=== PATIENT | male | born 1960 | race African-American/Black ===

== ENCOUNTER 2018-03-23 04:57 | Emergency (ER) | payer MEDICAID ==
[~2018-03-23] VITALS: Ht 180.3 cm; Wt 74.0 kg
[2018-03-23] MEDS ORDERED: MORPHINE SULFATE 4 MG/ML CPJ (NOT FOR IM USE) IV STA (06:43)
[2018-03-23 07:22] LABS: HEMATOCRIT. 40.2 % (42.0-52.0); HEMOGLOBIN. 13.6 g/dL (14.0-18.0); MEAN CORPUSCULAR HEMOGLOBIN 32.3 pg (28.0-32.0); MEAN CORPUSCULAR VOLUME 95.7 fL (80.0-94.0); MEAN PLATELET VOLUME 6.6 fl (7.4-10.4); PLATELET 281 x1000/uL (130-400); RED BLOOD CELL COUNT 4.21 mill/uL (4.7-6.1); RED CELL DISTRIBUTION WIDTH 13.2 % (11.6-14.6)
[2018-03-23 07:27] LABS: CHLORIDE 107 mEq/L (98-107)
[2018-03-23 07:30] LABS: PROTHROMBIN TIME 9.8 sec (9.1-11.1)
[2018-03-23 07:47] LABS: CLARITY URINE CLEAR (CLEAR); COLOR URINE YELLOW (YELLOW); KETONES URINE NEGATIVE (NEGATIVE); LEUKOCYTE ESTERASE URINE NEGATIVE (NEGATIVE); NITRITE URINE NEGATIVE (NEGATIVE); OCCULT BLOOD URINE NEGATIVE (NEGATIVE); PH URINE 6.5 (4.5-8.0); PROTEIN URINE NEGATIVE (NEGATIVE); SPECIFIC GRAVITY URINE 1.022 (1.005-1.030)
[2018-03-23 07:57] LABS: PLATELET ESTIMATE NORMAL
[2018-03-23 10:43] VITALS: BP 167/95
== END 2018-03-23 10:51 | disposition home or self-care (01) ==
LOC: ER 04:57
DX: K40.90 Unilateral inguinal hernia, without obstruction or gangrene, not specified as recurrent (principal)
CPT/HCPCS: 36415; 74176; 80053; 81003; 83690; 85025; 85610; 96374; 99284; J2270

== ENCOUNTER 2020-05-26 10:51 | Emergency (ER) | payer MEDICAID ==
[~2020-05-26] VITALS: Ht 180.3 cm; Wt 99.0 kg
[2020-05-26] MEDS ORDERED: IBUPROFEN 600MG TABLET PO ONE (11:15)
[2020-05-26] MEDS ORDERED: IBUP-2029 MT (11:54)
[2020-05-26 12:18] VITALS: BP 162/95
== END 2020-05-26 12:29 | disposition home or self-care (01) ==
LOC: ER 11:03
DX: M79.645 Pain in left finger(s) (principal)
CPT/HCPCS: 73130; 99283

== ENCOUNTER 2023-11-23 07:13 | Emergency (ER) | payer MEDICAID ==
[~2023-11-23] VITALS: Ht 180.3 cm; Wt 85.3 kg
[~2023-11-23 07:13] MED LIST: IBUP-2029 MT
[2023-11-23 07:22] VITALS: O2SAT 96
[2023-11-23 07:25] VITALS: TEMP 98.3; O2SAT 99
[2023-11-23 08:40] LABS: CHLORIDE 107 mEq/L (98-107); POTASSIUM 4.8 mEq/L (3.5-5.1); SODIUM 136 mEq/L (136-145)
[2023-11-23 08:41] LABS: CALCIUM 9.7 mg/dL (8.7-10.4); CARBON DIOXIDE 26 mEq/L (21-32)
[2023-11-23 08:46] LABS: CREATININE 1.1 mg/dL (0.6-1.3); GLUCOSE 81 mg/dL (70-105); UREA NITROGEN BLOOD 10 mg/dL (9-23)
[2023-11-23 08:47] LABS: TROPONIN I HIGH SENSITIVITY 11 ng/L (3.0-53)
[2023-11-23 09:20] VITALS: BP 187/102; PULSE 55; RESP 16
[2023-11-23] MEDS: IBUPROFEN 600MG TABLET PO ONE (09:20)
[2023-11-23] MEDS: METHOCARBAMOL 500MG TABLET PO ONE (09:24)
[2023-11-23 09:29] LABS: BASOPHILS % 0.4 % (0.0-2.0); EOSINOPHILS % 0.6 % (0.0-5.0); HEMATOCRIT. 43.2 % (42.0-52.0); HEMOGLOBIN. 14.5 g/dL (14.0-18.0); LYMPHOCYTES % 20.7 % (20.0-50.0); MEAN CORPUSCULAR HEMOGLOBIN 32.1 pg (28.0-32.0); MEAN CORPUSCULAR HGB CONC 33.5 g/dL (31.0-37.0); MEAN PLATELET VOLUME 7.5 fl (7.4-10.4); MONOCYTES % 8.1 % (2.0-8.0); NEUTROPHILS % 70.2 % (40.0-76.0); PLATELET 324 x1000/uL (130-400); WHITE BLOOD COUNT 6.6 x1000/uL (4.5-11.0)
[2023-11-23] MEDS ORDERED: IBUP-2029 MT (09:35)
[2023-11-23] MEDS ORDERED: METH-653 MT (09:35)
== END 2023-11-23 09:43 | disposition home or self-care (01) ==
LOC: ER 07:13
DX: S29.011A Strain of muscle and tendon of front wall of thorax, initial encounter (principal); I10 Essential (primary) hypertension
CPT/HCPCS: 36415; 71101; 80048; 84484; 85025; 93005; 99285